=== PATIENT | male | born 1975 | race Caucasian/White ===

== ENCOUNTER 2021-03-10 19:16 | Emergency (ER) | payer OTHER ==
[~2021-03-10] VITALS: Ht 175.3 cm; Wt 90.0 kg
[2021-03-10] MEDS ORDERED: KETOROLAC 30MG/ML VIAL IV STA (20:25)
[2021-03-10] MEDS ORDERED: SODIUM CHLORIDE 0.9% 1,000 ML IV ONE (20:30)
[2021-03-10 21:36] LABS: BASOPHILS % 0.7 % (0.0-2.0); EOSINOPHILS % 4.1 % (0.0-5.0); HEMATOCRIT. 40.3 % (42.0-52.0); HEMOGLOBIN. 14.5 g/dL (14.0-18.0); LYMPHOCYTES % 31.8 % (20.0-50.0); MEAN CORPUSCULAR HEMOGLOBIN 29.7 pg (28.0-32.0); MEAN CORPUSCULAR VOLUME 82.7 fL (80.0-94.0); MEAN PLATELET VOLUME 9.3 fl (7.4-10.4); MONOCYTES % 11.1 % (2.0-8.0); NEUTROPHILS % 52.3 % (40.0-76.0); PLATELET 179 x1000/uL (130-400); RED BLOOD CELL COUNT 4.87 mill/uL (4.7-6.1); RED CELL DISTRIBUTION WIDTH 12.9 % (11.6-14.6)
[2021-03-10 21:41] LABS: CHLORIDE 107 mEq/L (98-107)
[2021-03-10 21:48] LABS: CLARITY URINE CLEAR (CLEAR); COLOR URINE YELLOW (YELLOW); KETONES URINE TRACE (NEGATIVE); LEUKOCYTE ESTERASE URINE NEGATIVE (NEGATIVE); NITRITE URINE NEGATIVE (NEGATIVE); OCCULT BLOOD URINE NEGATIVE (NEGATIVE); PROTEIN URINE NEGATIVE (NEGATIVE); SPECIFIC GRAVITY URINE 1.038 (1.005-1.030); UROBILINOGEN URINE 0.2 E.U./dL (0.2-1.0)
[2021-03-10] MEDS ORDERED: ONDANSETRON HCL 4MG/2ML INJ IV STA (22:16)
[2021-03-10] MEDS ORDERED: MORPHINE SULFATE 4 MG/ML CPJ (NOT FOR IM USE) IV STA (22:16)
[2021-03-11] VITALS: BP 111/64
[2021-03-11] MEDS ORDERED: T3 PO (00:43)
[2021-03-11] MEDS ORDERED: IBUP-2029 MT (00:46)
== END 2021-03-11 01:23 | disposition home or self-care (01) ==
LOC: ER 19:34
DX: K40.90 Unilateral inguinal hernia, without obstruction or gangrene, not specified as recurrent (principal); F17.200 Nicotine dependence, unspecified, uncomplicated
CPT/HCPCS: 36415; 74176; 80053; 81003; 85025; 96361; 96374; 96375; 99284; J1885; J2270; J2405; J7030